=== PATIENT | female | born 1950 | race Caucasian/White ===

== ENCOUNTER 2021-03-14 11:19 | Outpatient (CLI) | payer MEDICARE ==
[~2021-03-14] VITALS: Ht 165.1 cm; Wt 63.5 kg
[2021-03-14 11:22] VITALS: BP 143/71
[2021-03-14] MEDS ORDERED: BAMLANIVIMAB 700 MG/ETESEVIMAB 1,400 MG IN NS IV ONE ×3 (11:45)
[2021-03-14] MEDS ORDERED: ACETAMINOPHEN 500 MG TAB (TYLENOL) PO PRN (11:45)
[2021-03-14] MEDS ORDERED: ONDANSETRON 4 MG/2 ML (SDV) Z0FRAN IV PRN (11:45)
[2021-03-14] MEDS ORDERED: EPINEPHrine INJECTION 1 MG/ML AMP IM PRN (11:45)
[2021-03-14] MEDS ORDERED: diphenhydrAMINE 50 MG/ML INJ (BENADRYL) IV PRN (11:45)
[2021-03-14 13:00] VITALS: BP 130/68
== END 2021-03-14 13:00 | disposition home or self-care (01) ==
LOC: INFUSION 11:19
PROVIDERS: ATTEND Nurse Practitioner Family
DX: U07.1 COVID-19 (principal)

== ENCOUNTER 2022-03-10 09:15 | Outpatient (RCR) | payer MEDICARE ==
[~2022-03-10] VITALS: Ht 163.8 cm; Wt 67.3 kg
[2022-03-10] MEDS ORDERED: PEGFILGRASTIM-BMEZ 6 MG/0.6 ML (ZIEXTENZO) SQ ONE (09:30)
[2022-03-10 09:40] VITALS: BP 121/60
[2022-03-10] MEDS ORDERED: XARELTO (10:14)
[2022-03-10] MEDS ORDERED: MULT-974 PO (10:14)
[2022-03-10] MEDS ORDERED: CALCIUM (10:14)
== END 2022-03-17 | disposition home or self-care (01) ==
LOC: SDC 09:15
PROVIDERS: ATTEND Internal Medicine Hematology & Oncology
DX: Z01.89 Encounter for other specified special examinations (principal)
CPT/HCPCS: 96372

== ENCOUNTER 2022-03-31 09:13 | Outpatient (RCR) | payer MEDICARE ==
[~2022-03-31 09:13] MED LIST: CALCIUM; MULT-974 PO; XARELTO
[2022-03-31 09:15] VITALS: BP 131/64
[2022-03-31] MEDS ORDERED: PEGFILGRASTIM-BMEZ 6 MG/0.6 ML (ZIEXTENZO) SQ ONE (10:00)
== END 2022-04-17 | disposition home or self-care (01) ==
LOC: SDC 09:13
PROVIDERS: ATTEND Internal Medicine Hematology & Oncology
DX: Z51.81 Encounter for therapeutic drug level monitoring (principal)
CPT/HCPCS: 96372

== ENCOUNTER 2022-04-21 09:26 | Outpatient (RCR) | payer MEDICARE ==
[~2022-04-21] VITALS: Ht 162.6 cm; Wt 67.3 kg
[2022-04-21 09:41] VITALS: BP 168/76
[2022-04-21] MEDS ORDERED: PEGFILGRASTIM-BMEZ 6 MG/0.6 ML (ZIEXTENZO) SQ NR (09:59)
== END 2022-05-15 | disposition home or self-care (01) ==
LOC: 4TH RCR 09:26
PROVIDERS: ATTEND Internal Medicine Hematology & Oncology
DX: Z51.81 Encounter for therapeutic drug level monitoring (principal); Z79.899 Other long term (current) drug therapy
CPT/HCPCS: 96372

== ENCOUNTER 2022-05-26 10:09 | Outpatient (RCR) | payer MEDICARE ==
[~2022-05-26] VITALS: Ht 165 cm; Wt 67.3 kg
[2022-05-26 10:42] VITALS: BP 142/89
[2022-05-26] MEDS ORDERED: PEGFILGRASTIM-BMEZ 6 MG/0.6 ML (ZIEXTENZO) SQ ONE (11:00)
[2022-06-16] MEDS: PEGFILGRASTIM-BMEZ 6 MG/0.6 ML (ZIEXTENZO) SQ ONE ×2 (09:58→13:35)
== END 2022-06-15 | disposition home or self-care (01) ==
LOC: 4THo 10:09
PROVIDERS: ATTEND Internal Medicine Hematology & Oncology
DX: Z51.81 Encounter for therapeutic drug level monitoring (principal); Z79.899 Other long term (current) drug therapy; Z92.21 Personal history of antineoplastic chemotherapy
CPT/HCPCS: 96372

== ENCOUNTER 2022-06-16 09:30 | Outpatient (RCR) | payer MEDICARE ==
[2022-06-16 09:30] VITALS: BP 143/65
[2022-06-16] MEDS ORDERED: PEGFILGRASTIM-BMEZ 6 MG/0.6 ML (ZIEXTENZO) SQ ONE (09:45)
[2022-06-19] MEDS ORDERED: PEGFILGRASTIM-BMEZ 6 MG/0.6 ML (ZIEXTENZO) SQ ONE (13:24)
== END 2022-07-15 | disposition home or self-care (01) ==
LOC: SDC 09:30
PROVIDERS: ATTEND Internal Medicine Hematology & Oncology
DX: Z92.21 Personal history of antineoplastic chemotherapy (principal)
CPT/HCPCS: 96372

== ENCOUNTER 2022-07-07 11:34 | Outpatient (RCR) | payer MEDICARE ==
[~2022-07-07] VITALS: Ht 165.1 cm; Wt 67.3 kg
[2022-07-07 11:38] VITALS: BP 157/70
[2022-07-07] MEDS ORDERED: PEGFILGRASTIM-BMEZ 6 MG/0.6 ML (ZIEXTENZO) SQ ONE (12:00)
== END 2022-07-15 | disposition home or self-care (01) ==
LOC: SDC 11:34
PROVIDERS: ATTEND Internal Medicine Hematology & Oncology
DX: Z51.11 Encounter for antineoplastic chemotherapy (principal)
CPT/HCPCS: 96372

== ENCOUNTER 2022-08-18 10:12 | Outpatient (RCR) | payer MEDICARE ==
[~2022-08-18] VITALS: Ht 165.1 cm; Wt 67.3 kg
[2022-08-18 09:40] VITALS: BP 118/65
[~2022-08-18 10:12] MED LIST changes: +PEGFILGRASTIM 6 MG/0.6ML (NEULASTA) SDC SQ ONE; +PEGFILGRASTIM CBQV 6 MG/0.6 ML SQ ONE
== END 2022-09-14 | disposition home or self-care (01) ==
LOC: SDC 10:12
PROVIDERS: ATTEND Internal Medicine Hematology & Oncology
DX: Z92.21 Personal history of antineoplastic chemotherapy (principal)
CPT/HCPCS: 96372